=== PATIENT | male | born 1960 | race Caucasian/White ===

== ENCOUNTER 2020-04-04 10:00 | Outpatient (CLI) | payer OTHER | END 2020-04-04 23:59 | disposition home or self-care (01) | LOC: ROC 10:00 | PROVIDERS: ATTEND Radiology Radiation Oncology | DX: C61 Malignant neoplasm of prostate (principal) | CPT/HCPCS: 99214; G0463 ==

== ENCOUNTER 2020-06-05 07:07 | Outpatient (CLI) | payer OTHER ==
[2020-06-05] MEDS ORDERED: FENTANYL PF 100 MCG/2ML ONE (07:30)
[2020-06-05] MEDS ORDERED: MIDAZOLAM 1 MG/ML, 5ML ONE (07:30)
[2020-06-05] MEDS ORDERED: LIDOCAINE/PF 1%, 30ML ONE (07:30)
== END 2020-06-05 23:59 | disposition home or self-care (01) ==
LOC: ROC 07:07
PROVIDERS: ATTEND Radiology Radiation Oncology
DX: C61 Malignant neoplasm of prostate (principal); I10 Essential (primary) hypertension; Z88.2 Allergy status to sulfonamides; Z88.8 Allergy status to other drugs, medicaments and biological substances
CPT/HCPCS: 55876; 76942; 77332; 99156; A4648; J2250; J3010; J3490

== ENCOUNTER → 2020-09-17 | Outpatient (CLI) | payer OTHER | END | disposition home or self-care (01) | LOC: ROC 07:55 | PROVIDERS: ATTEND Radiology Radiation Oncology | DX: Z08 Encounter for follow-up examination after completed treatment for malignant neoplasm (principal); Z85.46 Personal history of malignant neoplasm of prostate | CPT/HCPCS: 99212; G0463 ==

== ENCOUNTER 2021-02-12 11:07 | Day surgery (SDC) | payer OTHER ==
[~2021-02-12] VITALS: Ht 180.3 cm; Wt 120.9 kg
[2021-02-12 12:40] VITALS: BP 143/94
== END 2021-02-12 14:30 | disposition home or self-care (01) ==
LOC: OUT 11:07
PROVIDERS: ATTEND Internal Medicine Gastroenterology
DX: K22.70 Barrett's esophagus without dysplasia (principal); K21.9 Gastro-esophageal reflux disease without esophagitis; I10 Essential (primary) hypertension; E66.9 Obesity, unspecified; Z20.822 Contact with and (suspected) exposure to COVID-19; Z88.2 Allergy status to sulfonamides; Z88.8 Allergy status to other drugs, medicaments and biological substances
CPT/HCPCS: 43239; 87635; 88305; 93005; J7120